=== PATIENT | male | born 2000 ===

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

== ENCOUNTER 2020-03-07 13:10 | Emergency (ER) | payer MEDICAID ==
[2020-03-07 13:20] VITALS: BP 123/55
--- NOTE | 2020-03-07 13:46 | XRay Report ---
RIGHT HAND 3 VIEW(S) INDICATION / CLINICAL INFORMATION: swelling COMPARISON: None available. FINDINGS: BONES / JOINT(S): Acute mildly displaced transverse boxer type fracture little finger distal metacarp al neck with mild volar angulation No significant arthritis. SOFT TISSUES: No significant abnormality. ADDITIONAL FINDINGS: None. Signer Name: Roge Miranda MD Signed: 03/07/2020 1:41 PM Workstation Name: [id number]
[2020-03-07] MEDS ORDERED: IBUPROFEN 600 MG TAB PO ONE (16:14)
--- NOTE | 2020-03-07 16:19 | Emergency Department Report ---
ED Upper Extremity Inj HPI - General Chief Complaint: Extremity Injury, Upper Stated Complaint: R HAND POSS BROKEN Time Seen by Provider: 03/07/20 16:02 Source: patient Mode of arrival: Ambulatory Limitations: No Limitations - History of Present Illness Initial Comments: Patient is a 19-year-old male who presents emergency room complaints of a right hand injury that occurred a couple of hours prior to arrival. Patient states that he punched a wooden staircase. He states that he has had pain in his hand since then. He is able to move the fingers but has pain in his hand when he moves his pinky. He denies ever injuring in the past. He is right-hand dominant. No numbness or weakness. No past medical history. No allergies to medications. - Related Data Previous Rx's Medication Instructions Recorded Last Taken Type Ibuprofen [Motrin 600 MG tab] 600 mg PO Q8H PRN #20 tablet 03/07/20 Unknown Rx Allergies Allergy/AdvReac Type Severity Reaction Status Date / Time No Known Allergies Allergy Unverified 03/07/20 13:17 ED Review of Systems ROS: Stated complaint: R HAND POSS BROKEN Other details as noted in HPI Comment: All other systems reviewed and negative ED Past Medical Hx - Past Medical History Previous Medical History?: No - Surgical History Past Surgical History?: No - Social History Smoking Status: Current Every Day Smoker Substance Use Type: Alcohol - Medications Home Medications: Home Medications Medication Instructions Recorded Confirmed Last Taken Type Ibuprofen [Motrin 600 MG tab] 600 mg PO Q8H PRN #20 tablet 03/07/20 Unknown Rx ED Physical Exam - General Limitations: No Limitations General appearance: alert, in no apparent distress - Head Head exam: Present: atraumatic, normocephalic - Eye Eye exam: Present: normal appearance - ENT ENT exam: Present: mucous membranes moist - Extremities Exam Extremities exam: Present: other (ttp and edema present to the distal end of the right 5th metacarpal, no ttp to the digits or wrist, FROM of the digits and wrist, neurovascularly intact) - Neurological Exam Neurological exam: Present: alert, oriented X3 - Psychiatric Psychiatric exam: Present: normal affect, normal mood - Skin Skin exam: Present: warm, dry, intact ED Course Vital Signs 03/07/20 13:18 Temperature 98.1 F Pulse Rate 90 Respiratory 16 Rate Blood Pressure 123/55 O2 Sat by Pulse 98 Oximetry ED Medical Decision Making - Radiology Data Radiology results: report reviewed RIGHT HAND 3 VIEW(S) INDICATION / CLINICAL INFORMATION: swelling COMPARISON: None available. FINDINGS: BONES / JOINT(S): Acute mildly displaced transverse boxer type fracture little finger distal metacarpal neck with mild volar angulation No significant arthritis. SOFT TISSUES: No significant abnormality. ADDITIONAL FINDINGS: None. Signer Name: Roge Miranda MD Signed: 03/07/2020 1:41 PM Workstation Name: [id number] Transcribed By: TL Dictated By: Roge Miranda MD Electronically Authenticated By: Roge Miranda MD Signed Date/Time: 03/07/20 1341 DD/ 1340 TD/TT: - Medical Decision Making Patient is a 19-year-old male who presents emergency room complaints of a right hand injury that occurred a couple of hours prior to arrival. Patient states that he punched a wooden staircase. He states that he has had pain in his hand since then. He is able to move the fingers but has pain in his hand when he moves his pinky. He denies ever injuring in the past. He is right-hand dominant. No numbness or weakness. No past medical history. No allergies to medications. vitals are normal. on exam: ttp and edema present to the distal end of the right 5th metacarpal, no ttp to the digits or wrist, FROM of the digits and wrist, neurovascularly intact. right hand XR: BONES / JOINT(S): Acute mildly displaced transverse boxer type fracture little finger distal metacarpal neck with mild volar angulation No significant arthritis.SOFT TISSUES: No significant abnormality. ADDITIONAL FINDINGS: None. Patient given ibuprofen and placed in a Velcro boxers fracture splint and remained neurovascularly intact. Patient given prescription for ibuprofen. Advised patient to please take medication as prescribed. Please follow-up with an orthopedic doctor, it is very important that you follow-up with orthopedic. Please do not remove splint. Return to emergency room for any new or worsening symptoms. - Differential Diagnosis strain, sprain, fx, dislocation Critical care attestation.: If time is entered above; I have spent that time in minutes in the direct care of this critically ill patient, excluding procedure time. ED Disposition Clinical Impression: Boxers fracture Qualifiers: Encounter type: initial encounter Fracture type: closed Qualified Code(s): S62.339A - Displaced fracture of neck of unspecified metacarpal bone, initial encounter for closed fracture Disposition: TO HOME OR SELFCARE Is pt being admited?: No Does the pt Need Aspirin: No Condition: Stable Instructions: Boxer Fracture (ED) Additional Instructions: please take medication as prescribed. Please follow-up with an orthopedic doctor, it is very important that you follow-up with orthopedic. Please do not remove splint. Return to emergency room for any new or worsening symptoms. Prescriptions: Ibuprofen [Motrin 600 MG tab] 600 mg PO Q8H PRN #20 tablet PRN Reason: Pain Referrals: RUSTAM MASSEY MD [Staff Physician] - 2-3 Days [facility] [Provider Group] - 2-3 Days Time of Disposition: 16:20 Print Language: AMERICAN
== END 2020-03-07 17:15 | disposition home or self-care (01) ==
LOC: ED 13:10
DX: S62.336A Displaced fracture of neck of fifth metacarpal bone, right hand, initial encounter for closed fracture (principal); F17.200 Nicotine dependence, unspecified, uncomplicated; Z79.1 Long term (current) use of non-steroidal anti-inflammatories (NSAID); W22.03XA Walked into furniture, initial encounter; Y93.89 Activity, other specified; Y92.89 Other specified places as the place of occurrence of the external cause; Y99.8 Other external cause status